=== PATIENT | female | born 1960 | race African-American/Black ===

== ENCOUNTER 2023-08-26 00:10 | Inpatient (IN) | payer OTHER ==
[2023-08-26 00:26] VITALS: BMI 16.0
[2023-08-26 01:46] LABS: HEMATOCRIT 36.2 % (32.4-45.2); HEMOGLOBIN 12.1 GM/dL (10.7-15.3); MCH 30.9 pg (25.7-33.7); MCHC 33.3 g/dl (32.0-36.0); MEAN CELL VOLUME 92.8 fl (80-96); MEAN PLT VOLUME 8.5 fl (7.5-11.1); PLATELET COUNT 149 10^3/uL (134-434); RDW 13.1 % (11.6-15.6)
[2023-08-26 01:50] LABS: WHITE BLOOD COUNT 1.4 K/mm3 (4.0-10.0)
[2023-08-26 02:05] LABS: CALCIUM 8.5 mg/dL (8.5-10.1)
[2023-08-26 02:06] LABS: ALBUMIN 3.4 g/dl (3.4-5.0); BLOOD UREA NITROGEN 14.8 mg/dL (7-18)
[2023-08-26 02:09] LABS: CREATININE 0.8 mg/dL (0.55-1.3)
[2023-08-26 02:10] LABS: TOT PROT 8.4 g/dl (6.4-8.2)
[2023-08-26 02:11] LABS: BILIRUBIN,TOTAL 0.6 mg/dL (0.2-1)
[2023-08-26 03:54] LABS: ANISOCYTOSIS 1+; MACROCYTOSIS 0
[2023-08-26 08:58] LABS: HEMATOCRIT 37.5 % (32.4-45.2); HEMOGLOBIN 12.4 GM/dL (10.7-15.3); MCH 30.9 pg (25.7-33.7); MCHC 33.1 g/dl (32.0-36.0); MEAN CELL VOLUME 93.6 fl (80-96); MEAN PLT VOLUME 9.1 fl (7.5-11.1); PLATELET COUNT 166 10^3/uL (134-434); RBC 4.01 M/mm3 (3.60-5.2); RDW 13.2 % (11.6-15.6)
[2023-08-26 09:01] LABS: WHITE BLOOD COUNT 1.8 K/mm3 (4.0-10.0)
[2023-08-26] MEDS ORDERED: REMDESIVIR 200 MG in SODIUM CHLORIDE 250 ML IVPB ONE (10:00)
[2023-08-26] MEDS: ENOXAPARIN NA (PORCINE) 40 MG/0.4 ML DISP.SYRIN SQ SCH (10:59)
[2023-08-26 11:48] LABS: ANISOCYTOSIS 0; MACROCYTOSIS 0
[2023-08-26] MEDS: predniSONE 5 MG TABLET (UD) PO SCH (13:44)
[2023-08-26] MEDS: HYDROXYCHLOROQUINE SO4 200 MG TABLET (FP) PO SCH (13:45)
[2023-08-27 08:45] LABS: HEMATOCRIT 37.2 % (32.4-45.2); HEMOGLOBIN 12.4 GM/dL (10.7-15.3); MCH 31.2 pg (25.7-33.7); MCHC 33.2 g/dl (32.0-36.0); MEAN CELL VOLUME 93.8 fl (80-96); MEAN PLT VOLUME 8.9 fl (7.5-11.1); PLATELET COUNT 196 10^3/uL (134-434); RBC 3.97 M/mm3 (3.60-5.2)
[2023-08-27 08:54] LABS: POTASSIUM 3.8 mmol/L (3.5-5.1)
[2023-08-27 09:01] LABS: ALBUMIN 3.5 g/dl (3.4-5.0); CALCIUM 9.6 mg/dL (8.5-10.1)
[2023-08-27 09:02] LABS: BLOOD UREA NITROGEN 17.8 mg/dL (7-18); CREATININE 0.8 mg/dL (0.55-1.3); MAGNESIUM 2.2 mg/dL (1.8-2.4)
[2023-08-27 09:04] LABS: BILIRUBIN,DIRECT 0.2 mg/dL (0.0-0.2)
[2023-08-27 09:05] LABS: PHOSPHOROUS 3.3 mg/dL (2.5-4.9); WHITE BLOOD COUNT 1.8 K/mm3 (4.0-10.0)
[2023-08-27 09:06] LABS: BILIRUBIN,TOTAL 0.6 mg/dL (0.2-1); TOT PROT 8.7 g/dl (6.4-8.2)
[2023-08-27] MEDS ORDERED: ENOXAPARIN NA (PORCINE) 40 MG/0.4 ML DISP.SYRIN SQ ONE (10:35)
[2023-08-27] MEDS: ENOXAPARIN NA (PORCINE) 40 MG/0.4 ML DISP.SYRIN SQ SCH (10:45)
[2023-08-27] MEDS: HYDROXYCHLOROQUINE SO4 200 MG TABLET (FP) PO SCH (10:45)
[2023-08-27] MEDS: predniSONE 5 MG TABLET (UD) PO SCH (10:45)
[2023-08-27] MEDS ORDERED: REMDESIVIR 100 MG in SODIUM CHLORIDE 230 ML IVPB ONE (11:30)
[2023-08-28] MEDS ORDERED: ENOXAPARIN NA (PORCINE) 40 MG/0.4 ML DISP.SYRIN SQ ONE (08:41)
[2023-08-28] MEDS: ENOXAPARIN NA (PORCINE) 40 MG/0.4 ML DISP.SYRIN SQ SCH ×2 (08:42→10:22)
[2023-08-28] MEDS: predniSONE 5 MG TABLET (UD) PO SCH ×2 (08:42→10:29)
[2023-08-28] MEDS: HYDROXYCHLOROQUINE SO4 200 MG TABLET (FP) PO SCH (10:27)
[2023-08-28] MEDS ORDERED: REMDESIVIR 100 MG in SODIUM CHLORIDE 250 ML IVPB ONE ×3 (15:05→19:15)
[2023-08-29 09:19] LABS: BASO % 1.8 % (0-2.0); EOS % 2.1 % (0-4.5); HEMATOCRIT 36.2 % (32.4-45.2); HEMOGLOBIN 12.3 GM/dL (10.7-15.3); LYMPH % 43.8 % (8-40); MCH 31.6 pg (25.7-33.7); MCHC 33.9 g/dl (32.0-36.0); MEAN CELL VOLUME 93.3 fl (80-96); MEAN PLT VOLUME 9.2 fl (7.5-11.1); MONO % 10.9 % (3.8-10.2); NEUT % 41.4 % (42.8-82.8); PLATELET COUNT 215 10^3/uL (134-434); RBC 3.88 M/mm3 (3.60-5.2); RDW 12.9 % (11.6-15.6); WHITE BLOOD COUNT 2.5 K/mm3 (4.0-10.0)
[2023-08-29 09:40] LABS: POTASSIUM 3.9 mmol/L (3.5-5.1)
[2023-08-29 09:53] LABS: CALCIUM 9.4 mg/dL (8.5-10.1)
[2023-08-29 09:54] LABS: BLOOD UREA NITROGEN 20.8 mg/dL (7-18)
[2023-08-29] MEDS: predniSONE 5 MG TABLET (UD) PO SCH (09:54)
[2023-08-29 09:57] LABS: ALBUMIN 3.7 g/dl (3.4-5.0); CREATININE 0.9 mg/dL (0.55-1.3)
[2023-08-29 09:58] LABS: TOT PROT 8.8 g/dl (6.4-8.2)
[2023-08-29] MEDS: ENOXAPARIN NA (PORCINE) 40 MG/0.4 ML DISP.SYRIN SQ SCH (09:58)
[2023-08-29 10:00] LABS: BILIRUBIN,TOTAL 0.7 mg/dL (0.2-1)
[2023-08-30] MEDS: ENOXAPARIN NA (PORCINE) 40 MG/0.4 ML DISP.SYRIN SQ SCH ×2 (10:09→10:45)
[2023-08-30] MEDS: MULTIVITAMINS THER W-MINERALS COMBO TABLET (FP) PO SCH ×2 (10:09→10:45)
[2023-08-30] MEDS: predniSONE 5 MG TABLET (UD) PO SCH (10:09)
[2023-08-31] MEDS: predniSONE 5 MG TABLET (UD) PO SCH (10:51)
[2023-08-31] MEDS: MULTIVITAMINS THER W-MINERALS COMBO TABLET (FP) PO SCH (10:51)
[2023-08-31] MEDS: ENOXAPARIN NA (PORCINE) 40 MG/0.4 ML DISP.SYRIN SQ SCH (10:52)
[2023-08-31 10:56] LABS: BASO % 1.5 % (0-2.0); HEMATOCRIT 37.7 % (32.4-45.2); HEMOGLOBIN 12.8 GM/dL (10.7-15.3); MCH 31.7 pg (25.7-33.7); MEAN CELL VOLUME 93.4 fl (80-96); MEAN PLT VOLUME 9.3 fl (7.5-11.1); MONO % 15.5 % (3.8-10.2); PLATELET COUNT 216 10^3/uL (134-434); RBC 4.04 M/mm3 (3.60-5.2); WHITE BLOOD COUNT 2.5 K/mm3 (4.0-10.0)
[2023-08-31 21:39] VITALS: BP 126/73; PULSE 76; RESP 20; TEMP 97.7
== END 2023-08-31 22:25 | disposition home or self-care (01) | DRG 179 ==
LOC: JER 00:10 → JERBED 05:16 → OBSVTOIN 08-28 11:02 → J8W 08-28 16:01
PROVIDERS: ADMIT Internal Medicine
PROC: XW033E5 Introduction of Remdesivir Anti-infective into Peripheral Vein, Percutaneous Approach, New Technology Group 5 (ICD-10-PCS; principal; 2023-08-26)
DX: U07.1 COVID-19 (principal); M32.9 Systemic lupus erythematosus, unspecified; R50.9 Fever, unspecified; D70.8 Other neutropenia; Z79.52 Long term (current) use of systemic steroids
CPT/HCPCS: 0241U-QW; 36415; 71045-TC-FY; 80048; 80053; 80076; 83735; 84100; 85025; 85027; 85379; 93005; 93010; 97116-GP; 97161-GP; 99285-25; G0378; J0248